=== PATIENT | female | born 1995 | race Caucasian/White ===

== ENCOUNTER 2016-11-18 16:52 | Day surgery (SDC) | payer OTHER ==
[2016-11-17 17:34] VITALS: BMI 33.0
[2016-11-18] VITALS (15 sets, daily range): BP systolic 120–141; BP diastolic 61–89; PULSE 68–80; RESP 12–24; Ht 157.5 cm; Wt 81.5 kg
[~2016-11-18] VITALS: Ht 157.5 cm; Wt 81.5 kg
[2016-11-18] MEDS ORDERED: OXYC-279 PO (17:20)
--- NOTE | 2016-11-18 17:33 | HPN ---
Date/Time of Note Date/Time of Note DATE: 11/18/16 TIME: 17:33 Interval H&P Admission Note Pt. seen H&P reviewed: No system changes JAIMIE HERNANDEZ Nov 18, 2016 17:33
[2016-11-18] MEDS ORDERED: MIDAZOLAM 1 MG/ML 2 ML INJ IV PRN (18:00)
[2016-11-18] MEDS ORDERED: LABETALOL HCL 20MG INJ IV PRN (18:00)
[2016-11-18] MEDS ORDERED: ONDANSETRON 4 MG INJ IV PRN (18:00)
[2016-11-18] MEDS ORDERED: HYDROmorphONE (0.2 MG/ML) 10ML SYG IV PRN ×3 (18:00)
[2016-11-18] MEDS ORDERED: FENTAnyl 50 MCG/ML VIAL IV PRN ×3 (18:00)
[2016-11-18] MEDS ORDERED: DIPHENHYDRAMINE 50 MG INJ IV PRN (18:00)
[2016-11-18] MEDS ORDERED: MEPERIDINE 25 MG INJ IV PRN (18:00)
[2016-11-18] MEDS ORDERED: EPHEDrine SULFATE 50 MG/5 ML SYG IV PRN (18:00)
[2016-11-18] MEDS ORDERED: OXYCODONE/ACETAMINOPHEN (5/325) TAB PO PRN ×2 (18:00)
[2016-11-18] MEDS ORDERED: METOCLOPRAMIDE 10 MG INJ IV PRN (18:00)
[2016-11-18] MEDS ORDERED: METOCLOPRAMIDE 10 MG INJ ONE (18:04)
[2016-11-18] MEDS ORDERED: LIDOCAINE 2% (SDV) 5 ML INJ ONE (18:04)
[2016-11-18] MEDS ORDERED: CEFAZOLIN 1 GM INJ ONE (18:04)
[2016-11-18] MEDS ORDERED: ONDANSETRON 4 MG INJ ONE (18:04)
[2016-11-18] MEDS ORDERED: PROPOFOL 20 ML ONE (18:04)
[2016-11-18] MEDS ORDERED: MEPERIDINE 100 MG INJ ONE (18:12)
[2016-11-18] MEDS ORDERED: LIDOCAINE 1% (STERILE-PAK) 30 ML INJ ONE (18:45)
[2016-11-18] MEDS ORDERED: BUPIVACAINE 0.5% (SDV) 30 ML INJ ONE (18:45)
--- NOTE | 2016-11-18 21:19 | OPPN ---
Date/Time of Note Date/Time of Note DATE: 11/18/16 TIME: 21:18 Operative Report Preoperative Diagnosis right radial shaft fracture, DRUJ subluxation/dislocation Postoperative Diagnosis right radial shaft fracture, DRUJ subluxation/dislocation Operation/Procedure Performed open reduction internal fixation of right radial shaft fracture, closed treatment of DRUJ subluxation/dislocation Provider: JAIMIE HERNANDEZ Anesthesia: general Estimated blood loss: 0 - 10 ml's Grafts/Implants Acumed forearm plate and screws 3.5mm Complications: None JAIMIE HERNANDEZ Nov 18, 2016 21:19
--- NOTE | 2016-11-19 05:58 | OPR ---
DATE OF OPERATION: 11/18/2016 SURGEON: Chito Earl MD ANESTHESIA: General. PREOPERATIVE DIAGNOSES: 1. Right radial shaft fracture. 2. Right wrist distal radioulnar joint subluxation/dislocation. POSTOPERATIVE DIAGNOSES: 1. Right radial shaft fracture. 2. Right wrist distal radioulnar joint subluxation/dislocation. OPERATIVE PROCEDURE: 1. Open reduction, internal fixation of right radial shaft fracture. 2. Closed treatment of right wrist distal radial ulnar joint dislocation/subluxation. Operative findings: 1. Displaced shortened radial shaft fracture with instability of the DRUJ. 2. Stability of the DRUJ after restoring length of the radial shaft and placing the forearm in supination. INDICATIONS FOR PROCEDURE: This is a 21-year-old female with injury to the right forearm who was seen in clinic and diagnosed with a displaced and shortened radial shaft fracture with instability of the DRUJ. On exam she had instability of the DRUJ as well as pain on stressing of the DRUJ. We discussed the options. The patient elected to proceed with surgical intervention understanding the risks, benefits. OPERATIVE PROCEDURE: The patient was seen in the preoperative area and all further questions were answered. Again, she gave informed consent understanding risks and benefits. She was taken to the operative suite and placed in supine position. She was placed under general anesthesia and 2 g Ancef IV given. Tourniquet placed in the right upper extremity and right upper extremity was prepped with ChloraPrep stick and draped in usual sterile fashion. Esmarch bandage was used to exsanguinate the extremity and tourniquet inflated to 250 mmHg. A modified volar Claudy approach to the radius was utilized with sharp dissection carried down through skin and subcutaneous tissue. The FCR sheath was visualized and was incised. The FCR tendon was retracted ulnarly and the FPL musculature distally was elevated off of the distal fragment. The proximal fragment had the pronator teres attached to it and a portion of the pronator teres was taken down in order to facilitate reduction of the fracture and placement of the plate. There was early callus formation between the fracture fragments and this was debrided with a [place] elevator and a rongeur. After adequate debridement of both fracture ends, the fracture was brought into anatomic alignment using crab claw reduction clamps. After I was pleased with the position, two 0.045 K-wires were driven across the fracture site on the radial aspect in order to secure the fracture. The forearm was supinated and an AccuMed forearm plate was placed across the fracture site with a 6 hole plate utilized and cortical screws were placed in the proximal and distal fragments. X-ray imaging confirmed near anatomic bony alignment and appropriate hardware positioning. Additional cortical screws were placed proximally and distally and final x-ray imaging showed appropriate hardware position and near anatomic fracture alignment. The K-wires were removed and I turned my attention to the distal radioulnar joint. I felt the distal radioulnar joint and there was some subluxation on stressing of the joint. The forearm was placed into supination and the joint tightened up and there was concentric alignment of the DRUJ. This was confirmed on x-ray imaging and decision was made to place the patient in supination during her recovery period to allow for the DRUJ to heal. The surgical wound was copiously irrigated and the tourniquet was deflated after 60 minutes. Bleeding was well controlled and all bleeders were controlled with Bovie electrocautery. Deep dermal layer was closed with 3-0 Vicryl and skin closed with 4-0 nylon. Xeroform placed over the wound followed by sterile gauze, Webril and a long-arm splint with the forearm in supination. The patient was awakened from anesthesia and taken to the postop suite in stable condition, tolerated the procedure well without complication. SPECIMENS: None. Estimated blood loss: 5 mL. Sponge, lap, and needle counts correct. Tourniquet time 60 minutes. CONDITION ON DISCHARGE: Stable. Dictated By: Chito Earl MD /[email or web address] /Document#: [id number] WILMA
--- NOTE | 2016-11-19 10:46 | RADRPT ---
PROCEDURE: Intraoperative imaging of the right forearm with fluoroscopy. CLINICAL INDICATION: Right forearm pain. Intraoperative. TECHNIQUE: 13 images of the right forearm were obtained in the operating room with an image intens ifier. No radiologist was in attendance. Fluoroscopy time is 28 seconds. COMPARISON: No prior study is available for comparison. FINDINGS: Images demonstrate open reduction and internal fixation of the midshaft of the right radius with a p late and multiple screws. IMPRESSION: 1. Intraoperative imaging of the right forearm. RPTAT: QQ .Gordon Adamson MD, MD Date Time Electronically viewed and signed by .Gordon Adamson MD, on 11/19/2016 10:46 .R/
== END 2016-11-18 21:49 | disposition home or self-care (01) ==
LOC: SDS 16:52
PROVIDERS: ATTEND Orthopaedic Surgery Hand Surgery
DX: S52.301A Unspecified fracture of shaft of right radius, initial encounter for closed fracture (principal); S63.014A Dislocation of distal radioulnar joint of right wrist, initial encounter; E66.9 Obesity, unspecified; Z68.32 Body mass index [BMI] 32.0-32.9, adult; Z88.8 Allergy status to other drugs, medicaments and biological substances; X58.XXXA Exposure to other specified factors, initial encounter; Y93.9 Activity, unspecified; Y99.9 Unspecified external cause status; Y92.9 Unspecified place or not applicable
CPT/HCPCS: 25515; 25675; 73090; J0690; J1170; J2175; J2405; J2765; J3010; Z7512; Z7610